=== PATIENT | male | born 1945 | race Caucasian/White ===

== ENCOUNTER 2018-07-06 08:57 | Observation (INO) | payer MEDICARE ==
[~2018-07-06] VITALS: Ht 177.8 cm; Wt 79.4 kg
[2018-07-06] MEDS: SODIUM CHLORIDE 0.9% 1000ML 1,000 ML IV SCH ×2 (01:50→15:46)
[~2018-07-06 08:57] MED LIST: ATENOLOL25 MG PO; ATORVASTATIN CA20 MG PO; AUGMENTIN 875-1 EACH PO; COENZYME Q10200 MG PO; DOXAZOSIN MESYLA4 MG PO; FAMOTIDINE40 MG PO; HYDROCHLOROTHIA25 MG PO; LEVOTHYROXINE125 MCG PO
[2018-07-06] MEDS ORDERED: ATENOLOL-CHLOR1 EAC1 PO (09:20)
[2018-07-06] MEDS ORDERED: COZAAR50 MG PO (09:20)
[2018-07-06] MEDS ORDERED: VITAMIN D1000 UNI1 PO (09:20)
[2018-07-06] MEDS ORDERED: FLOMAX0.4 MG PO (09:20)
[2018-07-06] MEDS ORDERED: ASPIR-LOW81 MG PO (09:20)
[2018-07-06] MEDS ORDERED: SODIUM CHLORIDE 0.9% 1000ML 1,000 ML ONE (09:21)
[2018-07-06] MEDS ORDERED: SODIUM CHLORIDE 0.9% 1000ML 1,000 ML IV ONE ×2 (09:30→10:15)
[2018-07-06 10:42] LABS: BASOPHILS % 0.2 % (0.0-1.0); EOSINOPHILS % 0.1 % (0.0-6.0); HEMATOCRIT 41.6 % (38.2-49.6); HEMOGLOBIN 14.3 g/dL (14.0-18.0); LYMPHOCYTES # (AUTO) 0.7 (1.0-3.2); MEAN CORPUSCULAR HEMOGLOBIN 30.3 pg (28-32); MEAN CORPUSCULAR HGB CONC 34.4 g/dL (31-35); MEAN CORPUSCULAR VOLUME 88.1 fL (81-99); MONOCYTES # (AUTO) 0.8 (0.2-0.8); MONOCYTES % 4.3 % (4.4-11.3); NEUTROPHILS # (AUTO) 16.2 (2.1-6.9); NEUTROPHILS % 90.6 % (38.7-80.0); PLATELET COUNT 197 x10e3/uL (140-360); RED BLOOD COUNT 4.72 x10e6/uL (4.3-5.7); RED CELL DISTRIBUTION WIDTH 13.1 % (11.7-14.4)
[2018-07-06 10:57] LABS: ALANINE AMINOTRANSFERASE 22 IU/L (0-55); ALBUMIN 3.1 g/dL (3.5-5.0); ALBUMIN/GLOBULIN RATIO 0.8 (0.8-2.0); ALKALINE PHOSPHATASE 87 IU/L (40-150); ANION GAP 14.8 mmol/L (8-16); BLOOD UREA NITROGEN 16 mg/dL (7-26); BUN/CREATININE RATIO 17 (6-25); CALCIUM 9.4 mg/dL (8.4-10.2); CARBON DIOXIDE 24 mmol/L (22-29); CHLORIDE 95 mmol/L (98-107); CREATININE, SERUM 0.96 mg/dL (0.72-1.25); EST GLOMERULAR FILTRATION RATE > 60 ML/MIN (60-); GLUCOSE 152 mg/dL (74-118); MAGNESIUM 1.7 MG/DL (1.3-2.1); PHOSPHORUS 4.1 MG/DL (2.3-4.7); POTASSIUM 3.8 mmol/L (3.5-5.1); SODIUM 130 mmol/L (136-145)
--- NOTE | 2018-07-06 14:00 | Diagnostic Imaging Report ---
EXAM: CHEST 2 VIEWS, PA and lateral DATE: 07/06/2018 Time stamp on exam: 12:02 PM INDICATION: Cough with shortness of breath COMPARISON: None FINDINGS: LINES/TUBES: None LUNGS: Left lower lobe consolidation. PLEURA: No effusions or pneumothorax. HEART AND MEDIASTINUM: Normal size and contour. Tortuous thoracic aorta with calcification. BONES AND SOFT TISSUES: No acute findings. IMPRESSION: Left lower lobe consolidation. Signed by: Dr. Wong Jones DO on 07/06/2018 1:57 PM
[2018-07-06] MEDS ORDERED: SODIUM CHLORIDE FLUSH 10 ML SYR INJ PRN (15:15)
[2018-07-06] MEDS ORDERED: CEFTRIAXONE SOD 1 GRAM/0.9% SOD CHL 50ML BAG IV SCH (15:15)
[2018-07-06] MEDS ORDERED: AZITHROMYCIN 500MG/SOD CHL 0.9% 250ML BAG IV SCH (15:15)
--- OUTSIDE RECORDS SUMMARY | 2018-07-06 15:18 | XMS REPORT ---
Author Author [facility] Address Unknown Phone Unavailable Care Team Providers Care Chief Sales Officer Name Role Phone Avelino GARDNER Unavailable Unavailable Problems This patient has no known problems. Allergies, Adverse Reactions, Alerts This patient has no known allergies or adverse reactions. Medications This patient has no known medications. Results Test Description Test Time Test Comments Text Results Atomic Results Result Comments CHEST 2 VIEWS 2018-07-06 13:55:00 [facility] [address] [address] Patient Name: ROSALIND DUNCAN MR #: [id number] : 1945 Age/Sex: 73/M Req #: [id number] Adm Physician: Ordered by: KARISSA GARDNER MD Report #: [id number] Location: ER Room/Bed: Procedure: [id number] DX/CHEST 2 VIEWS Exam Date: 07/06/18 Exam Time: 1215 REPORT STATUS: Signed EXAM: CHEST 2 VIEWS, PA and lateral DATE: 07/06/2018 Time stamp on exam: 12:02 PM INDICATION: Cough with shortness of breath COMPARISON: None FINDINGS: LINES/TUBES: None LUNGS: Left lower lobe consolidation. PLEURA: No effusions or pneumothorax. HEART AND MEDIASTINUM: Normal size and contour. Tortuous thoracic aorta with calcification. BONES AND SOFT TISSUES: No acute findings. IMPRESSION: Left lower lobe consolidation. Signed by: Dr. Genet Rosenberg DO on 07/06/2018 1:57 PM Dictated By: GENET ROSENBERG DO [id number] Transcribed By: DAVID on 1351 COPY TO: KARISSA GARDNER MD
[2018-07-06] MEDS: CEFTRIAXONE SOD 1 GM/NS 50 ML 50 ML IV SCH (15:48)
--- NOTE | 2018-07-06 19:39 | NUR ---
Patient arrived from ED via wheelchair as new admit to 204 with diagnoses of Orthostatic Syncope and pneumonia. Pt alert and oriented x3 and ambulatory prn. On IVF (NS at 125ml/hr) and scheduled IV antibiotics. Condition stable. Call castano within reach.
[2018-07-06 20:30] VITALS: BP 178/77
[2018-07-06] MEDS ORDERED: HYDRALAZINE HCL 20 MG/ML VIAL IV PRN (20:45)
--- NOTE | 2018-07-06 20:50 | NUR ---
Called Dr. Cates to inform patient's BP was 178/77. MD aware and gave BP med orders (see order list) and perform Qshift orthostatic v/s.
[2018-07-06] MEDS ORDERED: NIFEDIPINE CR 30 MG TAB PO SCH (21:00)
[2018-07-07] MEDS: CEFTRIAXONE SOD 1 GM/NS 50 ML 50 ML IV SCH (02:59)
[2018-07-07 04:00] VITALS: BP 129/67
[2018-07-07 05:12] LABS: BASOPHILS % 0.3 % (0.0-1.0); EOSINOPHILS # (AUTO) 0.2 (0.0-0.4); EOSINOPHILS % 2.1 % (0.0-6.0); HEMATOCRIT 34.8 % (38.2-49.6); HEMOGLOBIN 11.9 g/dL (14.0-18.0); LYMPHOCYTES # (AUTO) 1.2 (1.0-3.2); LYMPHOCYTES % 13.9 % (18.0-39.1); MEAN CORPUSCULAR HGB CONC 34.2 g/dL (31-35); MEAN CORPUSCULAR VOLUME 87.7 fL (81-99); MONOCYTES # (AUTO) 0.6 (0.2-0.8); MONOCYTES % 6.6 % (4.4-11.3); NEUTROPHILS # (AUTO) 6.6 (2.1-6.9); NEUTROPHILS % 76.5 % (38.7-80.0); PLATELET COUNT 162 x10e3/uL (140-360); RED BLOOD COUNT 3.97 x10e6/uL (4.3-5.7); RED CELL DISTRIBUTION WIDTH 12.9 % (11.7-14.4)
[2018-07-07 05:44] LABS: ANION GAP 11.4 mmol/L (8-16); BLOOD UREA NITROGEN 10 mg/dL (7-26); BUN/CREATININE RATIO 15 (6-25); CALCIUM 8.7 mg/dL (8.4-10.2); CARBON DIOXIDE 27 mmol/L (22-29); CHLORIDE 102 mmol/L (98-107); CREATININE, SERUM 0.66 mg/dL (0.72-1.25); EST GLOMERULAR FILTRATION RATE > 60 ML/MIN (60-); GLUCOSE 90 mg/dL (74-118); POTASSIUM 3.4 mmol/L (3.5-5.1); SODIUM 137 mmol/L (136-145)
[2018-07-07] MEDS ORDERED: AZITHROMYCIN 500MG/NS 250 ML 250 ML IV SCH (06:00)
--- NOTE | 2018-07-07 07:00 | NUR ---
Performed bedside shift report. Patient is alert/oriented x3 with no pain and in bed.
--- NOTE | 2018-07-07 07:03 | Diagnostic Imaging Report ---
EXAMINATION: CHEST SINGLE (PORTABLE) INDICATION: PNEUMONIA COMPARISON: 07/06/2018 FINDINGS: AP view TUBES and LINES: None. LUNGS: Stable left lower lobe consolidation. PLEURA: No pleural effusion or pneumothorax. HEART AND MEDIASTINUM: The cardiomediastinal silhouette is unremarkable. Tortuous aorta with calcification. BONES AND SOFT TISSUES: No acute osseous lesion. Soft tissues are unremarkable. UPPER ABDOMEN: No free air under the diaphragm. IMPRESSION: Stable left lower lobe consolidation. Signed by: DR. Charles Guerrero MD on 07/07/2018 6:59 AM
[2018-07-07 08:22] VITALS: BP 146/72
[2018-07-07 09:00] VITALS: BP 146/72
[2018-07-07] MEDS ORDERED: TAMSULOSIN HCL 0.4 MG CAP PO SCH (09:00)
--- NOTE | 2018-07-07 09:08 | NUR ---
IMM letter delivered and explained to pt and at bedside. Pt verbalized understanding. Signed copy placed in chart. Copy to pt.
[2018-07-07] MEDS: SODIUM CHLORIDE 0.9% 1000ML 1,000 ML IV SCH (10:32)
[2018-07-07] MEDS ORDERED: ALBUTEROL/IPRATROPIUM 3 ML NEB NEB ONE (10:45)
--- NOTE | 2018-07-07 12:02 | NUR ---
status changed to observation. CM spoke to pt and at bedside and explained status change. explained PINTO letter. They verbalized understanding. Signed copy placed in chart. Copy to pt.
[2018-07-07 12:03] VITALS: BP 143/75
[2018-07-07] MEDS ORDERED: LEVAQUIN500 MG PO (12:06)
--- NOTE | 2018-07-07 12:25 | NUR ---
Patient was given discharge documents with patient education on COPD, syncope and Levaquin. Patient was instructed to follow-up with PCP 1-2 weeks. Verbalized understanding. IV removed and intact. No further questions asked. Patient was wheeled to private auto.
[2018-07-07] MEDS ORDERED: ATORVASTATIN 20 MG TAB PO SCH (21:00)
== END 2018-07-07 12:34 | disposition home or self-care (01) ==
LOC: ER 08:57 → ERHOLD 15:03 → INTOOBSV 15:03 → MED/SURG2 19:45
PROVIDERS: ADMIT Internal Medicine; ATTEND Internal Medicine
DX: J18.9 Pneumonia, unspecified organism (principal); R55 Syncope and collapse; I10 Essential (primary) hypertension; E78.5 Hyperlipidemia, unspecified; E03.9 Hypothyroidism, unspecified; N40.0 Benign prostatic hyperplasia without lower urinary tract symptoms; E86.0 Dehydration; E87.1 Hypo-osmolality and hyponatremia
CPT/HCPCS: 36415 ×2; 71045; 71046; 80048; 80053; 83735; 83880; 84100; 84484; 85025 ×2; 87040; 87400; 93005; 99284; G0378 ×2; J0456; J0696 ×2; J7030 ×2

== ENCOUNTER → 2021-07-30 | Outpatient (RCR) | payer MEDICARE ==
[~2021-07-30] MED LIST changes: +ASPIR-LOW81 MG PO; +ATENOLOL-CHLOR1 EAC1 PO; +COZAAR50 MG PO; +FLOMAX0.4 MG PO; +LEVAQUIN500 MG PO; +VITAMIN D1000 UNI1 PO
== END ==
LOC: WCC 09:35
PROVIDERS: ATTEND Family Medicine Adult Medicine
DX: C01 Malignant neoplasm of base of tongue (principal); D00.07 Carcinoma in situ of tongue; M27.2 Inflammatory conditions of jaws; Y84.2 Radiological procedure and radiotherapy as the cause of abnormal reaction of the patient, or of later complication, without mention of misadventure at the time of the procedure; I73.9 Peripheral vascular disease, unspecified; I87.2 Venous insufficiency (chronic) (peripheral); I10 Essential (primary) hypertension; I70.0 Atherosclerosis of aorta; E78.5 Hyperlipidemia, unspecified; E03.9 Hypothyroidism, unspecified; Z01.810 Encounter for preprocedural cardiovascular examination; Z01.811 Encounter for preprocedural respiratory examination

== ENCOUNTER 2021-11-11 18:55 | Emergency (ER) | payer MEDICARE, OTHER ==
[~2021-11-11] VITALS: Ht 177.8 cm; Wt 79.4 kg
[2021-11-11] MEDS ORDERED: SILVER NITRATE SWABS TOP ONE (19:15)
[2021-11-11] MEDS ORDERED: LIDOCAINE 1% W/EPINEPHRINE 20 ML VIAL INJ ONE (19:15)
[2021-11-11] MEDS ORDERED: ULTRAM 50MG50 MG PO (19:29)
[2021-11-11] MEDS ORDERED: CEPHALEXIN500 MG PO (19:29)
[2021-11-11] MEDS ORDERED: SILVER NITRATE SWABS ONE (19:30)
== END 2021-11-11 20:00 | disposition home or self-care (01) ==
LOC: FSED 19:06
DX: S61.001A Unspecified open wound of right thumb without damage to nail, initial encounter (principal); W45.8XXA Other foreign body or object entering through skin, initial encounter; Y92.89 Other specified places as the place of occurrence of the external cause; I10 Essential (primary) hypertension; E03.9 Hypothyroidism, unspecified; K21.9 Gastro-esophageal reflux disease without esophagitis; Z85.818 Personal history of malignant neoplasm of other sites of lip, oral cavity, and pharynx
CPT/HCPCS: 99283

== ENCOUNTER 2021-11-12 10:56 | Emergency (ER) | payer MEDICARE ==
[~2021-11-12] VITALS: Ht 177.8 cm; Wt 90.7 kg
[~2021-11-12 10:56] MED LIST changes: +CEPHALEXIN500 MG PO; +ULTRAM 50MG50 MG PO
== END 2021-11-12 11:56 | disposition home or self-care (01) ==
LOC: FSED 11:03
DX: S61.001A Unspecified open wound of right thumb without damage to nail, initial encounter (principal); I73.9 Peripheral vascular disease, unspecified; I10 Essential (primary) hypertension; E03.9 Hypothyroidism, unspecified; W31.89XA Contact with other specified machinery, initial encounter; Z79.02 Long term (current) use of antithrombotics/antiplatelets; Z85.819 Personal history of malignant neoplasm of unspecified site of lip, oral cavity, and pharynx